=== PATIENT | male | born 1975 | race Caucasian/White ===

== ENCOUNTER 2020-01-15 20:28 | Emergency (ER) | payer OTHER ==
[2020-01-15 20:35] VITALS: TEMP 98.5; BMI 33.0
--- NOTE | 2020-01-15 20:38 | PDOC ---
Rapid Medical Evaluation Time Seen by Provider: 01/15/20 20:31 Medical Evaluation: Allergies Allergy/AdvReac Type Severity Reaction Status Date / Time No Known Allergies Allergy Verified 08/01/15 10:27 01/15/20 20:31 I have performed a brief in-person evaluation of this patient. CC: "I have a pulsating pain in my mouth." PE: tender submandibular swelling left mid mandible. Orders: deferred to ED provider Patient will proceed to ED for further evaluation. 01/15/20 20:39 Discharge Disposition - Diagnosis Toothache - Referrals - Patient Instructions - Post Discharge Activity
--- NOTE | 2020-01-15 21:53 | PDOC ---
History of Present Illness <BrizuelaFransisco - Last Filed: 01/15/20 22:38> - History of Present Illness Initial Comments: Jayant Marshall is a 44 y/o male with PMH significant for HTN, HLD, presenting today with tooth pain. Reports that pain started three days ago and has been worsening. He had a left upper molar tooth extraction done 6 weeks ago. Was told that he had "holes" in the left lower back molars (18 and 19) and that he needed a root canal, but he does not have insurance to cover that. Reports that the pain worsens when he bites down and has pain when he swallows. No bleeding or discharge from the tooth. No fever/chills. No chest pain/shortness of breath. No respiratory distress. No abd pain. No leg swelling. No dysuria/diarrhea. No headache/dizziness. 1 <Lewis Marrufo - Last Filed: 01/16/20 18:49> - General Chief Complaint: Pain Stated Complaint: MANDIBLE INFECTION W/ PAIN Time Seen by Provider: 01/15/20 20:31 Past History <Fransisco Brizuela - Last Filed: 01/15/20 22:38> - Medical History Anemia: No Asthma: Yes Cancer: No Cardiac Disorders: No CVA: No COPD: No CHF: No Dementia: No Diabetes: No GI Disorders: Yes (gastritis) Disorders: No HTN: Yes Hypercholesterolemia: Yes Liver Disease: No Seizures: No Thyroid Disease: No - Surgical History Abdominal Surgery: No Appendectomy: No Cardiac Surgery: No Cholecystectomy: No Lung Surgery: No Neurologic Surgery: No Orthopedic Surgery: No - Psycho-Social/Smoking History Smoking Status: Yes Smoking History: Never smoked Have you smoked in the past 12 months: Yes Number of Cigarettes Smoked Daily: 1 'Breaking Loose' booklet given: 04/21/13 - Substance Abuse Hx (Audit-C & DAST Scrn) How often the patient has a drink containing alcohol: Monthly or less Number of drinks the patient has on a typical day: 5 or 6 How often the patient has six or more drinks on one occasion: Never Score: In Men: 4 or > Positive; In Women: 3 or > Positive: 3 Screen Result (Pos requires Nsg. Audit-10AR): Negative In the last yr the pt used illegal drug/Rx for NonMed reason: No Score: Yes response is considered Positive: 0 Screen Result (Positive result requires Nsg. DAST-10): Negative <Lewis Marrufo - Last Filed: 01/16/20 18:49> - Medical History Allergies/Adverse Reactions: Allergies Allergy/AdvReac Type Severity Reaction Status Date / Time No Known Allergies Allergy Verified 08/01/15 10:27 Home Medications: Ambulatory Orders No Home Medications 0 dose .ROUTE UTDICT 10/16/13 Oseltamivir Phosphate [Tamiflu] 75 mg PO BID #10 capsule 08/01/15 Amoxicillin/Potassium Clav [Augmentin 875-125 Tablet] 1 each PO BID 5 Days #10 tablet 01/16/20 Naproxen 500 mg PO BID PRN 5 Days #10 tablet 01/16/20 Review of Systems - Review of Systems Comments:: GENERAL/CONSTITUTIONAL: No fever or chills. No weakness._ HEAD, EYES, EARS, NOSE AND THROAT: No change in vision. No change in hearing. No sore throat. Reports left lower molar swelling (18 and 19). Reports left cheek and submandibular swelling. Reports odynophagia. CARDIOVASCULAR: No chest pain or shortness of breath_ RESPIRATORY: Denies cough, hemoptysis_ GASTROINTESTINAL: No nausea, vomiting, diarrhea or constipation._ GENITOURINARY: No dysuria, frequency, or change in urination._ MUSCULOSKELETAL: No joint or muscle swelling or pain. No neck or back pain._ SKIN: No rash_ NEUROLOGIC: No headache, vertigo, loss of consciousness, or change in strength/sensation._ ENDOCRINE: No increased thirst. No abnormal weight change_ HEMATOLOGIC/LYMPHATIC: No anemia, easy bleeding, or history of blood clots._ ALLERGIC/IMMUNOLOGIC: No hives or skin allergy._ <Lewis Marrufo - Last Filed: 01/16/20 18:49> *Physical Exam - Vital Signs Last Vital Signs Temp Pulse Resp BP Pulse Ox 98.5 F 72 19 189/102 H 100 01/15/20 20:31 01/15/20 20:31 01/15/20 20:31 01/15/20 20:31 01/15/20 20:31 <Fransisco Brizuela - Last Filed: 01/15/20 22:38> - Vital Signs Last Vital Signs Temp Pulse Resp BP Pulse Ox 98.5 F 72 19 189/102 H 100 01/15/20 20:31 01/15/20 20:31 01/15/20 20:31 01/15/20 20:31 01/15/20 20:31 - Physical Exam GENERAL: Awake, alert, and oriented to person/place/time, in no acute distress_ HEAD: No signs of trauma, normocephalic, atraumatic _ EYES: PERRLA, EOMI, sclera anicteric, conjunctiva clear_ ENT: Hearing grossly normal, nares patent, oropharynx clear without exudates. No uvular deviation. Moist mucosa_ TEETH: TTP left lower molars #18 and 19. No fractured tooth. No bleeding or discharge noted. No abscess palpated over the tooth or gum. Mild swelling over the left cheek and left submandibular area. NECK: Normal ROM, supple, no lymphadenopathy, JVD, or masses_ LUNGS: No distress, speaks in full sentences, clear to auscultation bilaterally _ HEART: Regular rate and rhythm, normal S1 and S2, no murmurs appreciated, peripheral pulses normal and equal bilaterally._ EXTREMITIES: Normal inspection, Normal range of motion, no edema. No clubbing or cyanosis_ NEUROLOGICAL: Cranial nerves II through XII grossly intact. Normal speech, normal gait, no focal sensorimotor deficits _ SKIN: Warm, Dry, normal turgor, no rashes or lesions noted_ <Lewis Marrufo - Last Filed: 01/16/20 18:49> Procedures - Additional Procedures Progress: Infra-alveolar Nerve Block Risks and benefits discussed with patient. Verbal consent obtained. Distribution of left inferior alveolar nerve identified. 27 gauge needle inserted and drawn back with no blood return. 1 cc of bupivicaine injected into that region. Adequate analgesia obtained. No complications. Patient tolerated the procedure well. <Lewis Marrufo - Last Filed: 01/16/20 18:49> Medical Decision Making - Medical Decision Making 01/15/20 21:54 44M hx of HTN HLD s/p left upper molar extraction presenting today with pain over left lower molars (#18 and 19) for the past two days. No -systemic infectious symptoms. No fever/chills/shortness of breath. Tolerating secretions. DDx includes infected tooth vs dental abscess. Low suspicion for yury's angina vs other etiology compromising the airway given that the pt does not have a fever, has no change in voice per his report, able to swallow (though painful), is tolerating his secretions. Will provide infra alveolar block for pain control and f/u with dental clinic. 01/15/20 23:13 Infra-alveolar block performed with Dr. Lee. See procedure note. 01/16/20 00:12 XR left mandible and XR neck soft tissues shows no obvious mass or airway obstruction. Plan to d/c home with naproxen 500 mg BID and augmentin 875 mg BID for 5 days and [facility] dental clinic f/u tomorrow morning. All questions answered. Return precautions given. Pt verbalized understanding and agreement with plan. <Lewis Marrufo - Last Filed: 01/16/20 18:49> Discharge <Fransisco Brizuela - Last Filed: 01/15/20 22:38> - Discharge Information Problems reviewed: Yes - Admission No <Lewis Marrufo - Last Filed: 01/16/20 18:49> - Discharge Information Clinical Impression/Diagnosis: Toothache Condition: Stable Disposition: HOME - Additional Discharge Information Prescriptions: Amoxicillin/Potassium Clav [Augmentin 875-125 Tablet] 1 each PO BID 5 Days #10 tablet Naproxen 500 mg PO BID PRN 5 Days #10 tablet PRN Reason: Pain - Follow up/Referral Referrals: Yoni Loera MD [Primary Care Provider] - - Patient Discharge Instructions Patient Printed Discharge Instructions: DI for Dental Pain Additional Instructions: You should go to one of the following dental clinics tomorrow mornin) [facility] [address] [place] [address] Building [address], 3rd Floor 2) [facility] [address] [place] [address] Main Building, 2nd Floor Both clinics only take the first 15 people per day. Plan to arrive around 8am. Please take augmentin 875mg BID for 5 days until you see a dentist. I have sent a prescription for a pain medication called Naproxen to your pharmacy. Take as directed on the package insert. Do not exceed the recommended dosage. Do not take with other NSAID medications such as Ibuprofen, Advil, or Motrin. Start with taking the Naproxen 500mg every 12 hours. If the pain becomes worse then add Tylenol (Acetaminophen) between doses of Naproxen. An example schedule is as follows: 9:00 am 500mg Naproxen 12:00 pm 1000mg Tylenol 6:00 pm 1000mg Tylenol 9:00 pm 500 mg Naproxen 12:00 am 1000mg Tylenol Your blood pressure was elevated today in the emergency department. This is not likely to be the cause of your symptoms. However, you should discuss your blood pressure with your primary care doctor. It may be time to change or restart your medication. If you experience any new, worsening, or concerning symptoms, including worsening pain, discharge or bleeding from the tooth, difficulty breathing, inability to swallow, fever, chills, or any other concerns, please return to the emergency department. - Post Discharge Activity
[2020-01-15] MEDS ORDERED: BUPIVACAINE HCL/PF 0.5% (5 MG/ML) 30 ML VIAL IJ ONE (22:17)
--- NOTE | 2020-01-15 22:18 | PDOC ---
Attending Attestation - Resident Resident Name: Lewis Reyes - ED Attending Attestation I have performed the following: I have examined & evaluated the patient, The case was reviewed & discussed with the resident, I agree w/resident's findings & plan - HPI HPI: 01/15/20 23:20 Pt has pain at the 18th tooth; last tooth at the left mandible. Pt states that he has known cavities and that he needs a root canal. Pt smokes weed; not tobacco. Pt has no DM, only HTN and maybe high cholesterol - Physicial Exam PE: 01/15/20 23:21 Normal exam HEENT normal. Pt has pain at the left neck area/tender lymph nodes Pt has no voice change; no difficulty swallowing and no difficulty managing secretions. Pt has no fever and no chills. Pt has normal neuro exam - Medical Decision Making 01/15/20 23:30 1.5ml upivicaine infiltrated into the buccal mucosa, as well as around the inferior alveolar nerve. 01/15/20 23:31 Pt will have soft tissue xr of his neck; XR of left mandible. Discharge - Discharge Information Problems reviewed: Yes Clinical Impression/Diagnosis: Toothache Condition: Stable Disposition: HOME - Additional Discharge Information Prescriptions: Amoxicillin/Potassium Clav [Augmentin 875-125 Tablet] 1 each PO BID 5 Days #10 tablet Naproxen 500 mg PO BID PRN 5 Days #10 tablet PRN Reason: Pain - Follow up/Referral Referrals: Yoni Loera MD [Primary Care Provider] - - Patient Discharge Instructions Patient Printed Discharge Instructions: DI for Dental Pain Additional Instructions: You should go to one of the following dental clinics tomorrow mornin) [facility] [address] [place] [address] [address], 3rd Floor 2) [facility] [address] [place] [address] Main Building, 2nd Floor Both clinics only take the first 15 people per day. Plan to arrive around 8am. Please take augmentin 875mg BID for 5 days until you see a dentist. I have sent a prescription for a pain medication called Naproxen to your pharmacy. Take as directed on the package insert. Do not exceed the recommended dosage. Do not take with other NSAID medications such as Ibuprofen, Advil, or Motrin. Start with taking the Naproxen 500mg every 12 hours. If the pain becomes worse then add Tylenol (Acetaminophen) between doses of Naproxen. An example schedule is as follows: 9:00 am 500mg Naproxen 12:00 pm 1000mg Tylenol 6:00 pm 1000mg Tylenol 9:00 pm 500 mg Naproxen 12:00 am 1000mg Tylenol Your blood pressure was elevated today in the emergency department. This is not likely to be the cause of your symptoms. However, you should discuss your blood pressure with your primary care doctor. It may be time to change or restart your medication. If you experience any new, worsening, or concerning symptoms, including worsening pain, discharge or bleeding from the tooth, difficulty breathing, i nability to swallow, fever, chills, or any other concerns, please return to the emergency department. - Post Discharge Activity
[2020-01-15] MEDS ORDERED: BUPIVACAINE HCL 50 ML ONE (22:29)
[2020-01-15] MEDS ORDERED: AMOX TR/POT CLAV 875MG/125MG TABLETS (FP) PO ONE (23:18)
[2020-01-15] MEDS ORDERED: AMOX TR/POT CLAV 875MG/125MG TABLETS (FP) ONE (23:28)
[2020-01-15 23:56] VITALS: BP 190/96; PULSE 71
== END 2020-01-16 00:18 | disposition home or self-care (01) ==
LOC: JER 20:28
DX: K08.89 Other specified disorders of teeth and supporting structures (principal)
CPT/HCPCS: 70100-TC-FY; 70360-TC-FY; 99283-25

== ENCOUNTER 2020-03-20 15:55 | Emergency (ER) | payer OTHER ==
--- OUTSIDE RECORDS SUMMARY | 2020-03-20 16:08 | XMS ---
:1975 Author Organization [facility] Care Team Providers Name Role Phone Chumaceiro, Yoni Unavailable Unavailable Chumaceiro, Yoni Unavailable Unavailable Chumaceiro, Yoni Unavailable Unavailable Chumaceiro, Yoni Unavailable Unavailable Chumaceiro, Yoni Unavailable Unavailable Chumaceiro, Yoni Unavailable Unavailable Chumaceiro, Yoni Unavailable Unavailable Elmaclashonro, Yoni Unavailable Unavailable Riki Mosher MD Unavailable Unavailable Riki Mosher MD Unavailable Unavailable Riki Mosher MD Unavailable Unavailable Riki Mosher MD Unavailable Unavailable Riki Mosher MD Unavailable Unavailable EMERGENCY SERVICE, X Unavailable Unavailable HAYLEY MENDOZA Unavailable HAYLEY MENDOZA Unavailable ANNETTE MARMOLEJO Unavailable Unavailable HAYLEE VELASQUEZ Unavailable Unavailable Re-disclosure Warning The records that you are about to access may contain information from federally- assisted alcohol or drug abuse programs. If such information is present, then the following federally mandated warning applies: This information has been disclosed to you from records protected by federal confidentiality rules (42 CFR part 2). The federal rules prohibit you from making any further disclosure of this information unless further disclosure is expressly permitted by the written consent of the person to whom it pertains or as otherwise permitted by 42 CFR part 2. A general authorization for the release of medical or other information is NOT sufficient for this purpose. The Federal rules restrict any use of the information to criminally investigate or prosecute any alcohol or drug abuse patient.The records that you are about to access may contain highly sensitive health information, the redisclosure of which is protected by Article 27-F of the [facility] Public Health law. If you continue you may haveaccess to information: Regarding HIV / AIDS; Provided by facilities licensed or operated by the [facility] Office of Mental Health; or Provided by the [facility] Office for People With Developmental Disabilities. If such information is present, then the following [facility] mandated warning applies: This information has been disclosed to you from confidential records which are protected by state law. State law prohibits you from making any further disclosure of this information without the specific written consent of the person to whom it pertains, or as otherwise permitted by law. Any unauthorized further disclosure in violation of state law may result in a fine or penitentiary sentence or both. A general authorization for the release of medical or other information is NOT sufficient authorization for further disclosure. Encounters Encounter Providers Location Date Indications Data Source(s ) Attender: HAYLEY 03/12/2020 [facility] 12:00:00 AM EDT [facility], PC) Office Attender: HAYLEY MENDOZA 03/05/2020 12:00:00 AM EDT [facility] ([facility] Office Attender: HAYLEY MENDOZA 03/05/2020 12:00:00 AM EDT [facility] ([facility] Office Attender: HAYLEY MENDOZA 03/05/2020 12:00:00 AM EDT [facility] Office Attender: HAYLEY MENDOZA 02/29/2020 12:00:00 AM EDT [facility] ([facility] Office Attender: HAYLEY MENDOZA 02/29/2020 12:00:00 AM EDT [facility] ([facility] Office Attender: HAYLEY MENDOZA 02/29/2020 12:00:00 AM EDT [facility] ([facility] Office Attender: HAYLEY MENDOZA 02/29/2020 12:00:00 AM EDT [facility] ([facility] Office Attender: HAYLEY MENDOZA 02/29/2020 12:00:00 AM EDT [facility] ([facility]) Office Attender: HAYLEY MENDOZA 02/29/2020 12:00:00 AM EDT [facility] ([facility], ) Office Attender: HAYLEY MENDOZA 02/29/2020 12:00:00 AM EDT [facility] ([facility], ) Office Attender: HAYLEY MENDOZA 02/29/2020 12:00:00 AM EDT [facility] ([facility], ) Office Attender: Yoni 01/24/2020 12:00:00 AM EDT [facility] ([facility], ) Office Attender: Yoni 01/24/2020 12:00:00 AM EDT [facility] ([facility], ) Office Attender: Yoni 01/24/2020 12:00:00 AM EDT [facility] ([facility], ) Office Emergency Attender: RON 01/17/2020 NECK SWELLING [facility] AGNIESZKAAttender: 11:06:00 AM EDT [facility] EMERGENCY SERVICE, Corpor ation XAdmitter: HAYLEE VELASQUEZ NECK SWELLING Emergency Attender: FRANCIE 01/16/2020 06:28:00 TOOTH SATURNINO N [facility] CECILEARAttender: AM EDT [facility] Car [facility] EMERGENCY SERVICE, Corpor ation XAdmitter: ANNETTE MARMOLEJO TOOTH PAIN Emergency Attender: Riki 10/17/2019 04:43:00 DIFF BREAT JOHN [facility] Nomi MDAttender: AM EDT [facility] EMERGENCY SERVICE, Corpor ation XAdmitter: Riki Mosher MD DIFF BREATHING Medications Medication Brand Start Product Dose Route Administrative Pharmacy [facility] Indications Reaction Description Data Name Date Form Instructions Instructions Source(s) complet No Known [facility] ([place] [address] ed Medications [facility] 12:00: Medical, 00 AM PC) EDT complet No Known [facility] ([place] [address] ed Medications [facility] 12:[facility]: Medical, 00 AM PC) EDT complet No Known [facility] ([place] [address] ed Medications [facility] 12:00: Medical, 00 AM PC) EDT complet No Known [facility] ([place] [address] ed Medications [facility] 12:00: Medical, 00 AM PC) EDT complet No Known [facility] (St 2020 ed Medications [facility] 12:00: Medical, 00 AM PC) EDT Amoxicillin UNK complet Amoxicil paul [place] 500 MG Oral 2020 MG ed 500 MG Oral r [facility] Capsul 01:19: Capsule TAKE Hea lt 45 PM 1 CAPSULE Care EDT EVERY 8 Corporatio HOURS DAILY. n Dispense: 21 Supervising physician: Halyee Velasquez, DO 0.9% NaCl 0.9% 999 UNK active 0.9% NaCl [facility] IV NaCl 2020 mL IV 1000 mL [facility] IV 11:25: Health 51 AM Care EDT Corporatio n Medication administered onsite Tylenol Tylenol 01/17/2020 1000 UNK active Tylen ol [facility] Infusion 11:25:47 AM mg Infus ion [facility] (AD (AD EDT (ADULT) or Care GT 50 kg Corporation 1000 mg IVPB Medication administered onsite Unasyn Unasyn 01/17/2020 3 UNK active Unasyn [place] (Ampicillin/S (Ampicillin/S 11:16:11 AM gm (Ampicillin/Sulbacatam) [facility] EDT PREMIX Injection 3 g m IV Health Care [facility] Medication administered onsite Toradol 30 Toradol 30 01/16/2020 30 mg UNK active Toradol 30 [place] mg/mL (Ke mg/mL (Ke 07:33:51 AM mg/ mL [facility] EDT (Ketorolac) Care Injection 30 Corpora tion mg IM Medication administered onsite Amoxicillin-Pot 10/19/2019 999 UNK completed Amoxicillin-Pot [place] Clavulanate 87 10:39:39 AM MG [facility] 875-125 MG Oral [facility] Tablet TAKE 1 Corpor ation TABLET TWICE DAILY UNTIL FINISHED. Dispense: 20 Amoxicillin-Pot 10/19/2019 999 UNK completed Amoxicillin-Pot [place] Clavulanate 87 10:39:39 AM MG [facility] 875-125 MG Oral [facility] Tablet TAKE 1 Corpor ation TABLET TWICE DAILY UNTIL FINISHED. Dispense: 20 Amoxicillin-Pot 10/19/2019 999 UNK completed Amoxicillin-Pot [place] Clavulanate 87 10:39:39 AM MG [facility] 875-125 MG Oral [facility] Tablet TAKE 1 Corpor ation TABLET TWICE DAILY UNTIL FINISHED. Dispense: 20 Lidocaine 10/17/2019 999 UNK completed Lido melony [place] Viscous HCl 2 % 06:22:12 AM MG Vi scous HCl 2 % [facility] Mouth/Throat Health Care Solution USE Corpora tion EVERY 4 TO 6 HRS, GARGLE AND SWALLOW 5-10ML Dispense: 100 Lidocaine 10/17/2019 999 UNK completed Lido melony [place] Viscous HCl 2 % 06:22:12 AM MG Vi scous HCl 2 % [facility] ED Mouth/Throat Health Care Solution USE Corpora tion EVERY 4 TO 6 HRS, GARGLE AND SWALLOW 5-10ML Dispense: 100 Acetaminophen 10/17/2019 999 UNK completed Acetaminophen [place] 500 MG Oral Tabl 06:22:12 AM MG 5 00 MG Oral [facility] EDT Tablet TAKE 1 Health Care TABLET EVERY 4 Corpo ration TO 6 HOURS NEEDED. Dispense: 20 Acetaminophen 10/17/2019 999 UNK completed Acetaminophen [place] 500 MG Oral Tabl 06:22:12 AM MG 5 00 MG Oral [facility] EDT Tablet TAKE 1 Health Care TABLET EVERY 4 Corpo ration TO 6 HOURS NEEDED. Dispense: 20 Lidocaine 10/17/2019 999 UNK completed Lido melony [place] Viscous HCl 2 % 06:22:12 AM MG Vi scous HCl 2 % [facility] Mouth/Throat Health Care Solution USE Corpora tion EVERY 4 TO 6 HRS, GARGLE AND SWALLOW 5-10ML Dispense: 100 Acetaminophen 10/17/2019 999 UNK completed Acetaminophen [place] 500 MG Oral Tabl 06:22:12 AM MG 5 00 MG Oral [facility] EDT Tablet TAKE 1 Health Care TABLET EVERY 4 Corpo ration TO 6 HOURS NEEDED. Dispense: 20 Acetaminophen Acetami 10/17/2019 975 UNK active Acetaminophen [place] (Tylen nophen 05:24:22 AM mg (Tylenol) [facility] (Tylen EDT 975 mg PO Health C are Corporation Medication administered onsite Lidocaine Lidocaine 10/17/2019 10 UNK active L idocaine [place] Viscous So Viscous So 05:20:32 AM mL V iscous [facility] EDT Solution Care Oral 10 mL Corporati on PO Medication administered onsite Not Taking Not Taking 999 MG UNK completed N ot Taking [place] Home Meds Home Meds Home [facility] n Not Taking Not Taking 999 MG UNK completed N ot Taking [facility] Meds Home Meds Home [facility] n Not Taking Not Taking 999 MG UNK completed N ot Taking [facility] Meds Home Meds [facility] n Insurance Providers Payer name Policy type Policy ID Covered Covered republican's Policy P monica / Coverage republican ID relationship to Paredes Inf ormation type paredes MEDICAID OF [id number] 1 [id number] [facility] [id number] 1 [id number] [place] UNK UNK UNK HEALTH FIRST [id number] CLAIMS HEALTH FIRST [id number] B HEALTH PLANS HEALTH FIRST [id number] SP [id number] B UNK UNK UNK MEDICAID [id number] SP [id number] UNK UNK UNK Problems, Conditions, and Diagnoses Code Display Name Description Problem Type Effective Data Sour ce(s) Dates R94.5 Abnormal results ABNORMAL RESULTS Problem 02/29/2020 [facility] ([facility] of liver function OF LIVER FUNCTION 12:00:00 AM [facility], studies STUDIES EDT PC) M79.675 Pain in left PAIN IN LEFT Problem 02/29/2020 [facility] ([address] toe(s) TOE(S) 12:00:00 AM [facility], EDT PC) M79.674 Pain in right PAIN IN RIGHT Problem 02/29/2020 [facility] ( St toe(s) TOE(S) 12:00:00 AM [facility], EDT PC) E78.5 Hyperlipidemia, HYPERLIPIDEMIA, Problem 02/29/2020 MED[facility] EN (St unspecified UNSPECIFIED 12:00:00 AM [facility], EDT PC) L60.0 Ingrowing nail INGROWIN NAIL Problem 02/29/2020 [facility] (St 12:00:00 AM [facility], EDT PC) B35.1 Tinea unguium TINEA UNGUIUM Problem 02/29/2020 [facility] ( St 12:00:00 AM [facility], EDT PC) R94.5 Abnormal results ABNORMAL RESULTS Problem 02/29/2020 ME [facility] (St of liver function OF LIVER FUNCTION 12:00:00 AM [facility], studies STUDIES EDT PC) M79.675 Pain in left PAIN IN LEFT Problem 02/29/2020 [facility] ([address] toe(s) TOE(S) 12:00:00 AM [facility], EDT PC) M79.674 Pain in right PAIN IN RIGHT Problem 02/29/2020 [facility] ( St toe(s) TOE(S) 12:00:00 AM [facility] EDT PC) E78.5 Hyperlipidemia, HYPERLIPIDEMIA, Problem 02/29/2020 MED[facility] EN (St unspecified UNSPECIFIED 12:00:00 AM [facility], EDT PC) L60.0 Ingrowing nail INGROWIN NAIL Problem 02/29/2020 [facility] (St 12:00:00 AM [facility], EDT PC) B35.1 Tinea unguium TINEA UNGUIUM Problem 02/29/2020 [facility] ( St 12:00:00 AM [facility] EDT PC) M79.675 Pain in left PAIN IN LEFT Problem 02/29/2020 [facility] (St toe(s) TOE(S) 12:00:00 AM [facility] EDT PC) M79.674 Pain in right PAIN IN RIGHT Problem 02/29/2020 [facility] ( St toe(s) TOE(S) 12:00:00 AM [facility] EDT PC) L60.0 Ingrowing nail INGROWIN NAIL Problem 02/29/2020 [facility] (St 12:00:00 AM [facility] EDT PC) B35.1 Tinea unguium TINEA UNGUIUM Problem 02/29/2020 [facility] ( St 12:00:00 AM [facility]T PC) R94.5 Abnormal results ABNORMAL RESULTS Problem 02/29/2020 ME [facility] (St of liver function OF LIVER FUNCTION 12:00:00 [facility] M79.675 Pain in left PAIN IN LEFT Problem 02/29/2020 [facility] ([address] toe(s) TOE(S) 12:00:00 AM [facility] EDT PC) M79.674 Pain in right PAIN IN RIGHT Problem 02/29/2020 [facility] ( St toe(s) TOE(S) 12:00:00 AM [facility], EDT PC) E78.5 Hyperlipidemia, HYPERLIPIDEMIA, Problem 02/29/2020 MED[facility] EN (St unspecified UNSPECIFIED 12:00:00 AM [facility], EDT PC) L60.0 Ingrowing nail INGROWIN NAIL Problem 02/29/2020 [facility] (St 12:00:00 AM [facility], EDT PC) B35.1 Tinea unguium TINEA UNGUIUM Problem 02/29/2020 [facility] ( St 12:00:00 AM [facility], EDT PC) B97.21 SARS-associated SARS-ASSOCIATED Problem 01/24/2020 MED[facility] EN (St coronavirus as the CORONAVIRUS THE 12:00:00 AM [facility], cause of diseases CAUSE OF DISEASES EDT PC) classified CLASSIFIED elsewhere ELSEWHERE E66.8 Other obesity OTHER OBESITY Problem 01/24/2020 [facility] ( St 12:00:00 AM [facility], EDT PC) I10 Essential ESSENTIAL Problem 01/24/2020 [facility] (St (primary) (PRIMARY) 12:00:00 AM [facility], hypertension HYPERTENSION EDT PC) B97.21 SARS-associated SARS-ASSOCIATED Problem 01/24/2020 MED[facility] EN (St coronavirus as the CORONAVIRUS THE 12:00:00 AM [facility], cause of diseases CAUSE OF DISEASES EDT PC) classified CLASSIFIED elsewhere ELSEWHERE E66.8 Other obesity OTHER OBESITY Problem 01/24/2020 [facility] ( St 12:00:00 AM [facility], EDT PC) I10 Essential ESSENTIAL Problem 01/24/2020 [facility] (St (primary) (PRIMARY) 12:00:00 AM [facility], hypertension HYPERTENSION EDT PC) B97.21 SARS-associated SARS-ASSOCIATED Problem 01/24/2020 [facility] EN (St coronavirus as the CORONAVIRUS THE 12:00:00 AM [facility], cause of diseases CAUSE OF DISEASES EDT PC) classified CLASSIFIED elsewhere ELSEWHERE E66.8 Other obesity OTHER OBESITY Problem 01/24/2020 [facility] ( St 12:00:00 AM [facility], EDT PC) I10 Essential ESSENTIAL Problem 01/24/2020 [facility] (St (primary) (PRIMARY) 12:00:00 AM [facility], hypertension HYPERTENSION EDT PC) B97.21 SARS-associated SARS-ASSOCIATED Problem 01/24/2020 MED[facility] EN (St coronavirus as the CORONAVIRUS THE 12:00:00 AM [facility], cause of diseases CAUSE OF DISEASES EDT PC) classified CLASSIFIED elsewhere ELSEWHERE E66.8 Other obesity OTHER OBESITY Problem 01/24/2020 [facility] ( St 12:00:00 AM [facility], EDT PC) I10 Essential ESSENTIAL Problem 01/24/2020 [facility] (St (primary) (PRIMARY) 12:00:00 AM [facility], hypertension HYPERTENSION EDT PC) B97.21 SARS-associated SARS-ASSOCIATED Problem 01/24/2020 MED[facility] EN (St coronavirus as the CORONAVIRUS THE 12:00:00 AM [facility], cause of diseases CAUSE OF DISEASES EDT PC) classified CLASSIFIED elsewhere ELSEWHERE E66.8 Other obesity OTHER OBESITY Problem 01/24/2020 [facility] ( St 12:00:00 AM [facility], EDT PC) I10 Essential ESSENTIAL Problem 01/24/2020 [facility] (St (primary) (PRIMARY) 12:00:00 AM [facility], hypertension HYPERTENSION EDT PC) Z98.818 Other dental OTHER DENTAL Diagnosis 01/17/2020 [facility] r procedure status PROCEDURE STATUS 11:06:00 AM [facility] EDT Care OOYYO R60.0 Localized edema LOCALIZED EDEMA Diagnosis 01/17/2020 [place] 11:06:00 AM [facility] EDT Care OOYYO G89.18 Other acute OTHER ACUTE Diagnosis 01/17/2020 [place] postprocedural POSTPROCEDURAL 11:06:00 AM [facility] pain PAIN EDT Care OOYYO R60.9 Edema, unspecified EDEMA, UNSPECIFIED Diagnosis 0 [place] 11:06:00 AM [facility] EDT Care OOYYO I10 Essential ESSENTIAL Diagnosis 01/16/2020 [place] (primary) (PRIMARY) 06:28:00 AM [facility] hypertension HYPERTENSION EDT Care Corporation K02.9 Dental caries, DENTAL CARIES, Diagnosis 01/16/2020 [facility] unspecified UNSPECIFIED 06:28:00 AM [facility] EDT Care OOYYO K08.89 Other specified OTHER SPECIFIED Diagnosis 01/16/2020 [place] disorders of teeth DISORDERS OF TEETH 06:28:00 AM [facility] and supporting AND SUPPORTING EDT Care structures STRUCTURES Corporation U07.1 COVID-19 ACUTE COVID-19 ACUTE Diagnosis 10/17/2019 [facility] RESPIRATORY RESPIRATORY 04:43:00 AM [facility] DISEASE DISEASE EDT Care [facility] J02.0 Streptococcal STREPTOCOCCAL Diagnosis 10/17/2019 [facility] pharyngitis PHARYNGITIS 04:43:00 AM [facility] EDT Care Corporation J02.9 Acute pharyngitis, ACUTE PHARYNGITIS, Diagnosis 0 [place] unspecified UNSPECIFIED [facility]:43:[facility] Surgeries/Procedures Procedure Description Date Indications Data Source(s) OFFICE OUTPATIENT VISIT 03/12/2020 [facility] ([facility] 10 MINUTES 12:00:00 AM EDT Medical, ) OFFICE OUTPATIENT VISIT 03/05/2020 [facility] ([facility] 10 MINUTES 12:00:00 AM EDT Medical, ) AVULSION NAIL PLATE 03/05/2020 [facility] ( [facility] PARTIAL/COMPLETE SIMPLE 1 12:00:00 AM EDT Medical, ) OFFICE OUTPATIENT VISIT 03/05/2020 [facility] ([facility] 10 MINUTES 12:00:00 AM EDT Medical, ) AVULSION NAIL PLATE 03/05/2020 [facility] ( [facility] PARTIAL/COMPLETE SIMPLE 1 12:00:00 AM EDT Medical, ) Documentation of current 02/29/2020 [facility] ([facility] medications (procedure) 12:00:00 AM EDT edical, ) OFFICE OUTPATIENT VISIT 02/29/2020 [facility] ([facility] 15 MINUTES 12:00:00 AM EDT Medical, ) OFFICE OUTPATIENT NEW 20 02/29/2020 [facility] ([facility] MINUTES 12:00:00 AM EDT Medical, ) Documentation of current 02/29/2020 [facility] ([facility] medications (procedure) 12:00:00 AM EDT edical, ) OFFICE OUTPATIENT VISIT 02/29/2020 [facility] ([facility] 15 MINUTES 12:00:00 AM EDT Medical, ) OFFICE OUTPATIENT NEW 20 02/29/2020 [facility] ([facility] MINUTES 12:00:00 AM EDT [facility], ) OFFICE OUTPATIENT NEW 20 02/29/2020 [facility] ([facility] MINUTES 12:00:00 AM [facility], ) Documentation of current 02/29/2020 [facility] ([facility] medications (procedure) 12:00:00 AM EDT [facility], ) OFFICE OUTPATIENT VISIT 02/29/2020 [facility] ([facility] 15 MINUTES 12:00:00 AM [facility], ) OFFICE OUTPATIENT NEW 20 02/29/2020 [facility] ([facility] MINUTES 12:00:00 AM [facility], ) Documentation of current 01/24/2020 [facility] ([facility] medications (procedure) 12:00:00 AM EDT [facility], ) Documentation of current 01/24/2020 [facility] ([facility] medications (procedure) 12:00:00 AM EDT [facility], ) Documentation of current 01/24/2020 [facility] ([facility] medications (procedure) 12:00:00 AM EDT [facility], ) Documentation of current 01/24/2020 [facility] ([facility] medications (procedure) 12:00:00 AM EDT [facility], ) Documentation of current 01/24/2020 [facility] ([facility] medications (procedure) 12:00:00 AM EDT [facility], ) ECG ROUTINE ECG W/LEAST 01/24/2020 [facility] ([facility] 12 LDS W/I&R 12:00:00 AM [facility], ) COLLECTION VENOUS BLOOD 01/24/2020 [facility] ([facility] VENIPUNCTURE 12:00:00 AM [facility], ) Documentation of current 01/24/2020 [facility] ([facility] medications (procedure) 12:00:00 AM EDT [facility], ) Documentation of current 01/24/2020 [facility] ([facility] medications (procedure) 12:00:00 AM EDT [facility], ) Documentation of current 01/24/2020 [facility] ([facility] medications (procedure) 12:00:00 AM EDT [facility], ) Documentation of current 01/24/2020 [facility] ([facility] medications (procedure) 12:00:00 AM EDT [facility], ) Documentation of current 01/24/2020 [facility] ([facility] medications (procedure) 12:00:00 AM EDT [facility], ) ECG ROUTINE ECG W/LEAST 01/24/2020 [facility] ([facility] 12 LDS W/I&R 12:00:00 AM [facility], ) COLLECTION VENOUS BLOOD 01/24/2020 [facility] ([facility] VENIPUNCTURE 12:00:00 AM [facility], ) Documentation of current 01/24/2020 [facility] ([facility] medications (procedure) 12:00:00 AM T [facility], ) Documentation of current 01/24/2020 [facility] ([facility] medications (procedure) 12:00:00 AM T [facility], ) Documentation of current 01/24/2020 [facility] ([facility] medications (procedure) 12:00:00 AM T [facility], ) Documentation of current 01/24/2020 [facility] ([facility] medications (procedure) 12:00:00 AM T [facility], ) Documentation of current 01/24/2020 [facility] ([facility] medications (procedure) 12:00:00 AM T [facility], ) ECG ROUTINE ECG W/LEAST 01/24/2020 [facility] ([facility] 12 LDS W/I&R 12:00:00 AM [facility], ) COLLECTION VENOUS BLOOD 01/24/2020 [facility] ([facility] VENIPUNCTURE 12:00:00 AM [facility], ) Documentation of current 01/24/2020 [facility] ([facility] medications (procedure) 12:00:00 AM EDT [facility], ) Documentation of current 01/24/2020 [facility] ([facility] medications (procedure) 12:00:00 AM T [facility], ) Documentation of current 01/24/2020 [facility] ([facility] medications (procedure) 12:00:00 AM EDT [facility], ) Documentation of current 01/24/2020 [facility] ([facility] medications (procedure) 12:00:00 AM T [facility], ) Documentation of current 01/24/2020 [facility] ([facility] medications (procedure) 12:00:00 AM EDT [facility], ) ECG ROUTINE ECG W/LEAST 01/24/2020 [facility] ([facility] 12 LDS W/I&R 12:00:00 AM [facility]) COLLECTION VENOUS BLOOD 01/24/2020 [facility] ([facility] VENIPUNCTURE 12:00:00 AM [facility]) Documentation of current 01/24/2020 MED [facility] ([facility] medications (procedure) 12:00:00 AM [facility]) ECG ROUTINE ECG W/LEAST 01/24/2020 [facility] ([facility] 12 LDS W/I&R 12:00:00 AM [facility]) COLLECTION VENOUS BLOOD 01/24/2020 [facility] ([facility] VENIPUNCTURE 12:00:00 AM [facility]) Results ID Date Data Source [id number] 01/24/2020 12:00:00 [facility] Name Value Range Interpretation Code Description Data Clau rce(s) Supporting Document(s ) SARS-CoV- Positive Abnormal (applies [facility] (St 2 to non-numeric [facility] Antibody, results) [facility]) IgG ID Date Data Source [id number] 01/24/2020 12:00:00 AM EDT [facility] ([facility]) Name Value Range Interpretation Code Description Data Clau rce(s) Supporting Document(s ) SARS-CoV- Negative Normal (applies to [facility] (St 2 non-numeric [facility] Antibody, results) [facility]) IgM ID Date Data Source [id number] 01/24/2020 12:00:00 AM [facility] Name Value Range Interpretation Description Data Sup porting Code Source(s) Document(s ) Bilirubin.c 0.08 mg/dL Normal (applies to [facility] ( St onjugated non-numeric [facility] [Mass/volum results) [facility]) e] in Serum or Plasma ID Date Data Source [id number] 01/24/2020 12:00:00 AM EDT [facility] ([facility]) Name Value Range Interpretation Description Data Sup porting Code Source(s) Document(s ) Triglyceride 283 Above high normal [facility] (S t [Mass/volume] in mg/dL [facility] Serum or Plasma [facility]) Cholesterol 218 Above high normal [facility] (St [Mass/volume] in mg/dL [facility] Serum or Plasma Medical, ) HDL Cholesterol 29 mg/dL Below low normal [facility] ([facility], ) VLDL Cholesterol 57 mg/dL Above high normal MEDGE N ([place] [facility] [place] LDL Cholesterol 132 Above high normal MEDGEN (St Calc mg/dL [facility], ) ID Date Data Source [id number] 01/24/2020 12:00:00 AM EDT MEDGEN ([facility], ) Name Value Range Interpretation Description Data Sup porting Code Source(s) Document(s ) pH of Lower 6.5 Normal (applies MEDGEN (St respiratory to non-numeric [place] specimen results) Medical, PC) Specific gravity 1.018 Normal (applies MEDGEN (St of Pericardial to non-numeric [place] fluid by results) Medical, Refractometry PC) Urine-Color Yellow Normal (applies MEDGEN (St to non-numeric [place] results) Medical, PC) Appearance of Clear Normal (applies MEDGEN (St Abdomen to non-numeric [place] results) Medical, PC) Glucose Negative Normal (applies MEDGEN (St [Mass/volume] in to non-numeric [place] Urine collected results) Medical, for unspecified PC) duration WBC Esterase Negative Normal (applies MEDGEN (St to non-numeric [place] results) Medical, PC) Protein Negative Normal (applies MEDGEN (St [Mass/volume] in to non-numeric [place] Lower results) Medical, respiratory PC) specimen Ketones Negative Normal (applies MEDGEN (St [Presence] in to non-numeric [place] Blood by Tablet results) Medical, PC) Occult Blood Negative Normal (applies MEDGEN (St to non-numeric [place] results) Medical, PC) Nitrite, Urine Negative Normal (applies MEDGEN (S t to non-numeric [place] results) Medical, PC) Urobilinogen,Stephanie 1.0 mg/dL Normal (applies MEDGEN (St i-Qn to non-numeric [place] results) Medical, PC) Bilirubin Negative Normal (applies MEDGEN (St [Presence] in to non-numeric [place] Peritoneal fluid results) Medical, PC) Microscopic Normal (applies MEDGEN (St Examination to non-numeric [place] results) Medical, PC) ID Date Data Source [id number] 01/24/2020 12:00:00 AM EDT [facility] ([facility] Name Value Range Interpretation Description Data Sup porting Code Source(s) Document(s ) Glucose 108 Above high MEDGEN (St [Mass/volume] in mg/dL normal [place] Urine collected for Medical, unspecified PC) duration Urea nitrogen 16 mg/dL Normal (applies MEDGEN (St [Mass/volume] in to non-numeric [place] Serum or Plasma results) Medical, PC) Creatinine 1.03 Normal (applies MEDGEN (St [Interpretation] in mg/dL to non-numeric [place] [facility] Urine results) Medical, PC) eGFR If Africn Am 102 Normal (applies MEDGEN (St mL/min/1 to non-numeric [place] .73 results) Medical, PC) eGFR If NonAfricn 88 Normal (applies MEDGEN (St Am mL/min/1 to non-numeric [place] .73 results) Medical, PC) Sodium 142 Normal (applies [facility]GEN (St [Moles/volume] in mmol/L to non-numeric [place] Serum or Plasma results) Medical, PC) Potassium 4.2 Normal (applies MEDGEN (St [Mass/volume] in mmol/L to non-numeric [place] Blood results) Medical, PC) BUN/Creatinine 16 Normal (applies MEDGEN (S t Ratio to non-numeric [place] results) Medical, PC) Carbon dioxide, 21 Normal (applies MEDGEN ( St total mmol/L to non-numeric [place] [Moles/volume] in results) Medical, Serum or Plasma PC) Chloride 107 Above high MEDGEN (St [Moles/volume] in mmol/L normal [place] Serum or Plasma Medical, PC) Protein 6.9 g/dL Normal (applies [facility]GEN (St [Mass/volume] in to non-numeric [place] Serum or Plasma results) Medical, PC) Calcium 9.0 Normal (applies MEDGEN (St [Moles/volume] in mg/dL to non-numeric [place] Urine collected for results) Medical, unspecified PC) duration Globulin, Total 2.4 g/dL Normal (applies MEDGEN ( St to non-numeric [place] results) Medical, PC) A/G Ratio 1.9 Normal (applies [facility] (St to non-numeric [place] results) Medical, ) Microalbumin 4.5 g/dL Normal (applies MEDGEN (St [Mass/time] in to non-numeric [place] Urine collected for results) Medical, unspecified PC) duration Bilirubin.total <0.2 Normal (applies MEDGEN ( St [Mass/volume] in to non-numeric [place] Serum or Plasma results) Medical, ) Alkaline 127 IU/L Above high MEDGEN (St phosphatase normal [place] [Enzymatic Medical, activity/volume] in PC) Serum, Plasma or Blood Aspartate 28 IU/L Normal (applies MEDGEN (St aminotransferase to non-numeric [place] [Enzymatic results) Medical, activity/volume] in PC) Serum or Plasma Alanine 53 IU/L Above high MEDGEN (St aminotransferase normal [place] [Enzymatic Medical, activity/volume] in ) Serum or Plasma ID Date Data Source [id number] 01/24/2020 12:00:00 AM EDT [facility] ([facility], ) Name Value Range Interpretation Description Data Sup porting Code Source(s) Document(s ) Leukocytes 6.8 Normal (applies MEDGEN (St [#/volume] in x10E3/uL to non-numeric [place] Blood by results) Medical, PC) Automated count Erythrocytes 4.39 Normal (applies MEDGEN (St [#/volume] in x10E6/uL to non-numeric [place] Blood by results) Medical, ) Automated count Hematocrit 38.3 % Normal (applies MEDGEN (St [Volume to non-numeric [place] Fraction] of results) Medical, PC) Blood by Automated count Hemoglobin 13.0 Normal (applies MEDGEN (St [Mass/volume] in g/dL to non-numeric [place] Blood results) Medical, PC) MCV 87 fL Normal (applies [facility]GEN (St to non-numeric [place] results) Medical, PC) MCH 29.6 pg Normal (applies [facility]GEN (St to non-numeric [place] results) Medical, PC) MCHC 33.9 Normal (applies [facility]GEN (St g/dL to non-numeric [place] results) Medical, PC) RDW 12.8 % Normal (applies [facility] (St to non-numeric [place] results) Medical, PC) Platelets 302 Normal (applies MEDGEN (St [#/area] in x10E3/uL to non-numeric [place] Blood by results) Medical, ) Microscopy high power field Neutrophils [#] 57 % Normal (applies MEDGEN ( St in Body fluid by to non-numeric [place] Manual count results) Medical, ) Lymphs 33 % Normal (applies MEDGEN (St to non-numeric [place] results) Medical, ) Monocytes 9 % Normal (applies MEDGEN (St [#/volume] in to non-numeric [place] Cord blood results) Medical, ) Eos 1 % Normal (applies MEDGEN (St to non-numeric [place] results) Medical, ) Basos 0 % Normal (applies [facility]GEN (St to non-numeric [place] results) Medical, ) Neutrophils 3.8 Normal (applies MEDGEN (St (Absolute) x10E3/uL to non-numeric [place] results) Medical, ) Lymphs 2.3 Normal (applies MEDGEN (St (Absolute) x10E3/uL to non-numeric [place] results) Medical, ) Eos (Absolute) 0.1 Normal (applies MEDGEN (S t x10E3/uL to non-numeric [place] results) Medical, ) Monocytes(Absolu 0.6 Normal (applies MEDGEN (St te) x10E3/uL to non-numeric [place] results) Medical, ) Baso (Absolute) 0.0 Normal (applies MEDGEN ( St x10E3/uL to non-numeric [place] results) Medical, ) Immature Grans 0.0 Normal (applies MEDGEN (S t (Abs) x10E3/uL to non-numeric [place] results) Medical, ) Immature 0 % Normal (applies MEDGEN (St Granulocytes to non-numeric [place] results) Medical, ) ID Date Data Source [id number] 01/24/2020 12:00:00 AM EDT [facility] ([facility], ) Name Value Range Interpretation Code Description Data Clau rce(s) Supporting Document(s ) SARS-CoV- Positive Abnormal (applies MEDGEN (St 2 to non-numeric [place] Antibody, results) Medical, ) IgG ID Date Data Source [id number] 01/24/2020 12:00:00 AM EDT [facility] ([facility], ) Name Value Range Interpretation Code Description Data Clau rce(s) Supporting Document(s ) SARS-CoV- Negative Normal (applies to MEDGEN (St 2 non-numeric [place] Antibody, results) [facility], ) IgM ID Date Data Source [id number] 01/24/2020 12:00:00 AM EDT MED[facility] ([facility]) Name Value Range Interpretation Description Data Sup porting Code Source(s) Document(s ) Bilirubin.c 0.08 mg/dL Normal (applies to MEDGEN ( St onjugated non-numeric [place] [Mass/volum results) [facility], ) e] in Serum or Plasma ID Date Data Source [id number] 01/24/2020 12:00:00 AM EDT MEDGEN ([facility]) Name Value Range Interpretation Description Data Sup porting Code Source(s) Document(s ) Cholesterol 218 Above high normal MEDGEN (St [Mass/volume] in mg/dL [facility] Serum or Plasma [facility], ) Triglyceride 283 Above high normal MEDGEN (S t [Mass/volume] in mg/dL [facility] Serum or Plasma [facility]) HDL Cholesterol 29 mg/dL Below low normal MED[facility] ([facility], ) VLDL Cholesterol 57 mg/dL Above high normal MEDGE N ([facility]) LDL Cholesterol 132 Above high normal MEDGEN (St Calc mg/dL [facility]) ID Date Data Source [id number] 01/24/2020 12:00:00 AM EDT MEDGEN ([facility], ) Name Value Range Interpretation Description Data Sup porting Code Source(s) Document(s ) Specific gravity 1.018 Normal (applies MEDGEN (St of Pericardial to non-numeric [place] fluid by results) Medical, Refractometry ) pH of Lower 6.5 Normal (applies MEDGEN (St respiratory to non-numeric [place] specimen results) [facility], ) Urine-Color Yellow Normal (applies MEDGEN (St to non-numeric [place] results) Medical, ) WBC Esterase Negative Normal (applies MEDGEN (St to non-numeric [place] results) [facility], ) Appearance of Clear Normal (applies MEDGEN (St Abdomen to non-numeric [place] results) Medical, ) Protein Negative Normal (applies [facility]GEN (St [Mass/volume] in to non-numeric [place] Lower results) Medical, respiratory PC) specimen Glucose Negative Normal (applies [facility]GEN (St [Mass/volume] in to non-numeric [place] Urine collected results) Medical, for unspecified PC) duration Ketones Negative Normal (applies [facility]GEN (St [Presence] in to non-numeric [place] Blood by Tablet results) Medical, PC) Occult Blood Negative Normal (applies [facility]GEN (St to non-numeric [place] results) Medical, PC) Bilirubin Negative Normal (applies [facility]GEN (St [Presence] in to non-numeric [place] Peritoneal fluid results) Medical, PC) Urobilinogen,Stephanie 1.0 mg/dL Normal (applies [facility]GEN (St i-Qn to non-numeric [place] results) Medical, PC) Nitrite, Urine Negative Normal (applies [facility]GEN (S t to non-numeric [place] results) Medical, PC) Microscopic Normal (applies [facility]GEN (St Examination to non-numeric [place] results) Medical, PC) ID Date Data Source [id number] 01/24/2020 12:00:00 AM EDT [facility] ([facility]) Name Value Range Interpretation Description Data Sup porting Code Source(s) Document(s ) Glucose 108 Above high MEDGEN (St [Mass/volume] in mg/dL normal [place] Urine collected for Medical, unspecified PC) duration Urea nitrogen 16 mg/dL Normal (applies [facility]GEN (St [Mass/volume] in to non-numeric [place] Serum or Plasma results) Medical, PC) Creatinine 1.03 Normal (applies MEDGEN (St [Interpretation] in mg/dL to non-numeric [place] [facility] Urine results) Medical, PC) eGFR If Africn Am 102 Normal (applies MEDGEN (St mL/min/1 to non-numeric [place] .73 results) Medical, PC) eGFR If NonAfricn 88 Normal (applies MEDGEN (St Am mL/min/1 to non-numeric [place] .73 results) Medical, PC) Sodium 142 Normal (applies [facility]GEN (St [Moles/volume] in mmol/L to non-numeric [place] Serum or Plasma results) Medical, PC) BUN/Creatinine 16 Normal (applies MEDGEN (S t Ratio to non-numeric [place] results) Medical, PC) Potassium 4.2 Normal (applies [facility]GEN (St [Mass/volume] in mmol/L to non-numeric [place] Blood results) Medical, ) Carbon dioxide, 21 Normal (applies MEDGEN ( St total mmol/L to non-numeric [place] [Moles/volume] in results) Medical, Serum or Plasma PC) Chloride 107 Above high MEDGEN (St [Moles/volume] in mmol/L normal [place] Serum or Plasma Medical, ) Calcium 9.0 Normal (applies [facility]GEN (St [Moles/volume] in mg/dL to non-numeric [place] Urine collected for results) Medical, unspecified PC) duration Protein 6.9 g/dL Normal (applies [facility]GEN (St [Mass/volume] in to non-numeric [place] Serum or Plasma results) Medical, ) Microalbumin 4.5 g/dL Normal (applies [facility]GEN (St [Mass/time] in to non-numeric [place] Urine collected for results) Medical, unspecified PC) duration Globulin, Total 2.4 g/dL Normal (applies [facility]GEN ( St to non-numeric [place] results) Medical, ) A/G Ratio 1.9 Normal (applies MEDGEN (St to non-numeric [place] results) Medical, ) Bilirubin.total <0.2 Normal (applies MEDGEN ( St [Mass/volume] in to non-numeric [place] Serum or Plasma results) Medical, ) Alkaline 127 IU/L Above high MEDGEN (St phosphatase normal [place] [Enzymatic Medical, activity/volume] in PC) Serum, Plasma or Blood Aspartate 28 IU/L Normal (applies MEDGEN (St aminotransferase to non-numeric [place] [Enzymatic results) Medical, activity/volume] in PC) Serum or Plasma Alanine 53 IU/L Above high MEDGEN (St aminotransferase normal [place] [Enzymatic Medical, activity/volume] in PC) Serum or Plasma ID Date Data Source [id number] 01/24/2020 12:00:00 AM EDT [facility] ([facility], ) Name Value Range Interpretation Description Data Sup porting Code Source(s) Document(s ) Leukocytes 6.8 Normal (applies MEDGEN (St [#/volume] in x10E3/uL to non-numeric [place] Blood by results) Medical, ) Automated count Erythrocytes 4.39 Normal (applies MEDGEN (St [#/volume] in x10E6/uL to non-numeric [place] Blood by results) [facility], ) Automated count Hematocrit 38.3 % Normal (applies MEDGEN (St [Volume to non-numeric [place] Fraction] of results) [facility], ) Blood by Automated count Hemoglobin 13.0 Normal (applies MEDGEN (St [Mass/volume] in g/dL to non-numeric [place] Blood results) [facility], ) MCV 87 fL Normal (applies MEDGEN (St to non-numeric [place] results) [facility], ) MCH 29.6 pg Normal (applies MEDGEN (St to non-numeric [place] results) [facility], ) MCHC 33.9 Normal (applies MEDGEN (St g/dL to non-numeric [place] results) [facility], ) RDW 12.8 % Normal (applies MEDGEN (St to non-numeric [place] results) [facility], ) Platelets 302 Normal (applies MEDGEN (St [#/area] in x10E3/uL to non-numeric [place] Blood by results) [facility], ) Microscopy high power field Neutrophils [#] 57 % Normal (applies MEDGEN ( St in Body fluid by to non-numeric [place] Manual count results) [facility], ) Lymphs 33 % Normal (applies MEDGEN (St to non-numeric [place] results) [facility], ) Monocytes 9 % Normal (applies MEDGEN (St [#/volume] in to non-numeric [place] Cord blood results) [facility], ) Eos 1 % Normal (applies MEDGEN (St to non-numeric [place] results) [facility], ) Basos 0 % Normal (applies MEDGEN (St to non-numeric [place] results) [facility], ) Neutrophils 3.8 Normal (applies MEDGEN (St (Absolute) x10E3/uL to non-numeric [place] results) [facility], ) Lymphs 2.3 Normal (applies MEDGEN (St (Absolute) x10E3/uL to non-numeric [place] results) [facility], ) Monocytes(Absolu 0.6 Normal (applies MEDGEN (St te) x10E3/uL to non-numeric [place] results) [facility], ) Eos (Absolute) 0.1 Normal (applies MEDGEN (S t x10E3/uL to non-numeric [place] results) [facility], ) Baso (Absolute) 0.0 Normal (applies MEDGEN ( St x10E3/uL to non-numeric [place] results) [facility]) Immature 0 % Normal (applies MEDGEN (St Granulocytes to non-numeric [place] results) [facility]) Immature Grans 0.0 Normal (applies MEDGEN (S t (Abs) x10E3/uL to non-numeric [place] results) [facility]) ID Date Data Source [id number] 01/24/2020 12:00:00 AM EDT MEDGEN ([facility], ) Name Value Range Interpretation Code Description Data Clau rce(s) Supporting Document(s ) SARS-CoV- Positive Abnormal (applies MEDGEN (St 2 to non-numeric [place] Antibody, results) [facility]) IgG ID Date Data Source [id number] 01/24/2020 12:00:00 AM EDT MEDGEN ([facility], ) Name Value Range Interpretation Code Description Data Clau rce(s) Supporting Document(s ) SARS-CoV- Negative Normal (applies to MEDGEN (St 2 non-numeric [place] Antibody, results) [facility]) IgM ID Date Data Source [id number] 01/24/2020 12:00:00 AM EDT MEDGEN ([facility], ) Name Value Range Interpretation Description Data Sup porting Code Source(s) Document(s ) Bilirubin.c 0.08 mg/dL Normal (applies to MEDGEN ( St onjugated non-numeric [place] [Mass/volum results) [facility]) e] in Serum or Plasma ID Date Data Source [id number] 01/24/2020 12:00:00 AM EDT MEDGEN ([facility], ) Name Value Range Interpretation Description Data Sup porting Code Source(s) Document(s ) Cholesterol 218 Above high normal MEDGEN (St [Mass/volume] in mg/dL [facility] Serum or Plasma [facility]) HDL Cholesterol 29 mg/dL Below low normal [facility] ([facility]) VLDL Cholesterol 57 mg/dL Above high normal MEDGE N ( [facility]) Triglyceride 283 Above high normal MEDGEN (S t [Mass/volume] in mg/dL [facility]'s Serum or Plasma [facility]) LDL Cholesterol 132 Above high normal [facility] (St Calc mg/dL [facility], ) ID Date Data Source [id number] 01/24/2020 12:00:00 AM EDT [facility] ([facility] ) Name Value Range Interpretation Description Data Sup porting Code Source(s) Document(s ) Specific gravity 1.018 Normal (applies MEDGEN (St of Pericardial to non-numeric [place] fluid by results) Medical, Refractometry PC) Urine-Color Yellow Normal (applies MEDGEN (St to non-numeric [place] results) Medical, PC) pH of Lower 6.5 Normal (applies [facility]GEN (St respiratory to non-numeric [place] specimen results) Medical, PC) Protein Negative Normal (applies [facility]GEN (St [Mass/volume] in to non-numeric [place] Lower results) Medical, respiratory PC) specimen WBC Esterase Negative Normal (applies MEDGEN (St to non-numeric [place] results) Medical, PC) Appearance of Clear Normal (applies MEDGEN (St Abdomen to non-numeric [place] results) Medical, PC) Glucose Negative Normal (applies [facility]GEN (St [Mass/volume] in to non-numeric [place] Urine collected results) Medical, for unspecified PC) duration Ketones Negative Normal (applies MEDGEN (St [Presence] in to non-numeric [place] Blood by Tablet results) Medical, PC) Urobilinogen,Stephanie 1.0 mg/dL Normal (applies [facility]GEN (St i-Qn to non-numeric [place] results) Medical, PC) Bilirubin Negative Normal (applies [facility] (St [Presence] in to non-numeric [place] Peritoneal fluid results) Medical, PC) Occult Blood Negative Normal (applies MEDGEN (St to non-numeric [place] results) Medical, PC) Nitrite, Urine Negative Normal (applies [facility]GEN (S t to non-numeric [place] results) Medical, PC) Microscopic Normal (applies MEDGEN (St Examination to non-numeric [place] results) Medical, ) ID Date Data Source [id number] 01/24/2020 12:00:00 AM EDT [facility] ([facility] ) Name Value Range Interpretation Description Data Sup porting Code Source(s) Document(s ) Creatinine 1.03 Normal (applies MEDGEN (St [Interpretation] in mg/dL to non-numeric [place] [facility] Urine results) Medical, PC) Urea nitrogen 16 mg/dL Normal (applies [facility]GEN (St [Mass/volume] in to non-numeric [place] Serum or Plasma results) Medical, PC) Glucose 108 Above high MEDGEN (St [Mass/volume] in mg/dL normal [place] Urine collected for Medical, unspecified PC) duration eGFR If NonAfricn 88 Normal (applies MEDGEN (St Am mL/min/1 to non-numeric [place] .73 results) Medical, PC) eGFR If Africn Am 102 Normal (applies MEDGEN (St mL/min/1 to non-numeric [place] .73 results) Medical, PC) BUN/Creatinine 16 Normal (applies MEDGEN (S t Ratio to non-numeric [place] results) Medical, PC) Potassium 4.2 Normal (applies [facility]GEN (St [Mass/volume] in mmol/L to non-numeric [place] Blood results) Medical, PC) Sodium 142 Normal (applies MEDGEN (St [Moles/volume] in mmol/L to non-numeric [place] Serum or Plasma results) Medical, PC) Calcium 9.0 Normal (applies MEDGEN (St [Moles/volume] in mg/dL to non-numeric [place] Urine collected for results) Medical, unspecified PC) duration Chloride 107 Above high MEDGEN (St [Moles/volume] in mmol/L normal [place] Serum or Plasma Medical, PC) Carbon dioxide, 21 Normal (applies MEDGEN ( St total mmol/L to non-numeric [place] [Moles/volume] in results) Medical, Serum or Plasma PC) Protein 6.9 g/dL Normal (applies MEDGEN (St [Mass/volume] in to non-numeric [place] Serum or Plasma results) Medical, PC) Microalbumin 4.5 g/dL Normal (applies MEDGEN (St [Mass/time] in to non-numeric [place] Urine collected for results) Medical, unspecified PC) duration A/G Ratio 1.9 Normal (applies MEDGEN (St to non-numeric [place] results) Medical, PC) Globulin, Total 2.4 g/dL Normal (applies MEDGEN ( St to non-numeric [place] results) Medical, PC) Alkaline 127 IU/L Above high MEDGEN (St phosphatase normal [place] [Enzymatic Medical, activity/volume] in PC) Serum, Plasma or Blood Bilirubin.total <0.2 Normal (applies MEDGEN ( St [Mass/volume] in to non-numeric [place] Serum or Plasma results) Medical, ) Aspartate 28 IU/L Normal (applies MEDGEN (St aminotransferase to non-numeric [place] [Enzymatic results) Medical, activity/volume] in ) Serum or Plasma Alanine 53 IU/L Above high MEDGEN (St aminotransferase normal [place] [Enzymatic Medical, activity/volume] in ) Serum or Plasma ID Date Data Source [id number] 01/24/2020 12:00:00 AM EDT [facility] ([facility], ) Name Value Range Interpretation Description Data Sup porting Code Source(s) Document(s ) Leukocytes 6.8 Normal (applies MEDGEN (St [#/volume] in x10E3/uL to non-numeric [place] Blood by results) [facility], ) Automated count Hemoglobin 13.0 Normal (applies MEDGEN (St [Mass/volume] in g/dL to non-numeric [place] Blood results) [facility], ) Hematocrit 38.3 % Normal (applies MEDGEN (St [Volume to non-numeric [place] Fraction] of results) [facility], ) Blood by Automated count Erythrocytes 4.39 Normal (applies MEDGEN (St [#/volume] in x10E6/uL to non-numeric [place] Blood by results) [facility], ) Automated count MCH 29.6 pg Normal (applies MEDGEN (St to non-numeric [place] results) [facility], ) MCV 87 fL Normal (applies MEDGEN (St to non-numeric [place] results) [facility], ) MCHC 33.9 Normal (applies MEDGEN (St g/dL to non-numeric [place] results) [facility], ) RDW 12.8 % Normal (applies MEDGEN (St to non-numeric [place] results) Medical, ) Platelets 302 Normal (applies MEDGEN (St [#/area] in x10E3/uL to non-numeric [place] Blood by results) [facility], ) Microscopy high power field Monocytes 9 % Normal (applies MEDGEN (St [#/volume] in to non-numeric [place] Cord blood results) [facility], ) Neutrophils [#] 57 % Normal (applies MEDGEN ( St in Body fluid by to non-numeric [place] Manual count results) [facility] ) Lymphs 33 % Normal (applies MEDGEN (St to non-numeric [place] results) Medical, ) Eos 1 % Normal (applies MEDGEN (St to non-numeric [place] results) Medical, ) Basos 0 % Normal (applies MEDGEN (St to non-numeric [place] results) Medical, ) Monocytes(Absolu 0.6 Normal (applies MEDGEN (St te) x10E3/uL to non-numeric [place] results) Medical, ) Lymphs 2.3 Normal (applies MEDGEN (St (Absolute) x10E3/uL to non-numeric [place] results) Medical, ) Neutrophils 3.8 Normal (applies MEDGEN (St (Absolute) x10E3/uL to non-numeric [place] results) Medical, ) Baso (Absolute) 0.0 Normal (applies MEDGEN ( St x10E3/uL to non-numeric [place] results) Medical, ) Eos (Absolute) 0.1 Normal (applies MEDGEN (S t x10E3/uL to non-numeric [place] results) Medical, ) Immature 0 % Normal (applies MEDGEN (St Granulocytes to non-numeric [place] results) Medical, ) Immature Grans 0.0 Normal (applies [facility] (S t (Abs) x10E3/uL to non-numeric [facility] results) Medical, ) ID Date Data Source [id number] 01/24/2020 12:00:00 AM EDT [facility] ([facility], ) Name Value Range Interpretation Code Description Data Clau rce(s) Supporting Document(s ) SARS-CoV- Positive Abnormal (applies [facility] (St 2 to non-numeric [facility] Antibody, results) Medical, ) IgG ID Date Data Source [id number] 01/24/2020 12:00:00 AM EDT [facility] ([facility], ) Name Value Range Interpretation Code Description Data Clau rce(s) Supporting Document(s ) SARS-CoV- Negative Normal (applies to [facility] (St 2 non-numeric [facility] Antibody, results) Medical, ) IgM ID Date Data Source [id number] 01/24/2020 12:00:00 AM EDT [facility] ([facility], ) Name Value Range Interpretation Description Data Sup porting Code Source(s) Document(s ) Bilirubin.c 0.08 mg/dL Normal (applies to [facility] ( St onjugated non-numeric [facility] [Mass/volum results) Medical, ) e] in Serum or Plasma ID Date Data Source [id number] 01/24/2020 12:00:00 AM EDT [facility] ([facility], ) Name Value Range Interpretation Description Data Sup porting Code Source(s) Document(s ) Cholesterol 218 Above high normal [facility] (St [Mass/volume] in mg/dL [facility] Serum or Plasma [facility], ) Triglyceride 283 Above high normal [facility] (S t [Mass/volume] in mg/dL [facility] Serum or Plasma [facility], ) HDL Cholesterol 29 mg/dL Below low normal [facility] ([facility]) LDL Cholesterol 132 Above high normal MED[facility] (St Calc mg/dL [facility]) VLDL Cholesterol 57 mg/dL Above high normal MEDGE N ([facility]) ID Date Data Source [id number] 01/24/2020 12:00:00 AM EDT [facility] ([facility], ) Name Value Range Interpretation Description Data Sup porting Code Source(s) Document(s ) Specific gravity 1.018 Normal (applies [facility] (St of Pericardial to non-numeric [facility] fluid by results) Medical, Refractometry PC) Urine-Color Yellow Normal (applies [facility] (St to non-numeric [facility] results) Medical, ) pH of Lower 6.5 Normal (applies [facility] (St respiratory to non-numeric [facility] specimen results) Medical, ) WBC Esterase Negative Normal (applies [facility] (St to non-numeric [facility] results) Medical, PC) Appearance of Clear Normal (applies [facility] (St Abdomen to non-numeric [facility] results) Medical, PC) Protein Negative Normal (applies [facility] (St [Mass/volume] in to non-numeric [facility] Lower results) Medical, respiratory PC) specimen Glucose Negative Normal (applies [facility] (St [Mass/volume] in to non-numeric [facility] Urine collected results) Medical, for unspecified PC) duration Ketones Negative Normal (applies [facility] (St [Presence] in to non-numeric [facility] Blood by Tablet results) Medical, PC) Occult Blood Negative Normal (applies [facility] (St to non-numeric [facility] results) Medical, ) Bilirubin Negative Normal (applies [facility] (St [Presence] in to non-numeric [facility] Peritoneal fluid results) Medical, ) Nitrite, Urine Negative Normal (applies [facility] (S t to non-numeric [facility] results) Medical, ) Urobilinogen,Stephanie 1.0 mg/dL Normal (applies [facility] (St i-Qn to non-numeric [facility] results) Medical, ) Microscopic Normal (applies [facility] (St Examination to non-numeric [facility] results) Medical, ) ID Date Data Source [id number] 01/24/2020 12:00:00 AM EDT [facility] ([facility], ) Name Value Range Interpretation Description Data Sup porting Code Source(s) Document(s ) Glucose 108 Above high [facility] (St [Mass/volume] in mg/dL normal [facility] Urine collected for Medical, unspecified PC) duration Urea nitrogen 16 mg/dL Normal (applies [facility] (St [Mass/volume] in to non-numeric [facility] Serum or Plasma results) Medical, ) Creatinine 1.03 Normal (applies [facility] (St [Interpretation] in mg/dL to non-numeric [facility] Urine results) Medical, ) eGFR If Africn Am 102 Normal (applies [facility] (St mL/min/1 to non-numeric [facility] .73 results) Medical, ) BUN/Creatinine 16 Normal (applies [facility] (S t Ratio to non-numeric [facility] results) Medical, ) eGFR If NonAfricn 88 Normal (applies [facility] (St Am mL/min/1 to non-numeric [facility] .73 results) Medical, ) Sodium 142 Normal (applies [facility] (St [Moles/volume] in mmol/L to non-numeric [facility] Serum or Plasma results) Medical, ) Potassium 4.2 Normal (applies [facility] (St [Mass/volume] in mmol/L to non-numeric [facility] Blood results) Medical, ) Chloride 107 Above high [facility] (St [Moles/volume] in mmol/L normal [facility] Serum or Plasma Medical, ) Carbon dioxide, 21 Normal (applies [facility] ( St total mmol/L to non-numeric [facility] [Moles/volume] in results) Medical, Serum or Plasma PC) Calcium 9.0 Normal (applies [facility] (St [Moles/volume] in mg/dL to non-numeric [facility] Urine collected for results) Medical, unspecified PC) duration Globulin, Total 2.4 g/dL Normal (applies [facility] ( St to non-numeric [facility] results) Medical, ) Protein 6.9 g/dL Normal (applies [facility] (St [Mass/volume] in to non-numeric [facility] Serum or Plasma results) Medical, ) Microalbumin 4.5 g/dL Normal (applies [facility] (St [Mass/time] in to non-numeric [facility] Urine collected for results) Medical, unspecified PC) duration Bilirubin.total <0.2 Normal (applies [facility] ( St [Mass/volume] in to non-numeric [facility] Serum or Plasma results) Medical, ) A/G Ratio 1.9 Normal (applies [facility] (St to non-numeric [facility] results) Medical, ) Aspartate 28 IU/L Normal (applies [facility] (St aminotransferase to non-numeric [facility] [Enzymatic results) Medical, activity/volume] in PC) Serum or Plasma Alkaline 127 IU/L Above high [facility] (St phosphatase normal [facility] [Enzymatic Medical, activity/volume] in PC) Serum, Plasma or Blood Alanine 53 IU/L Above high [facility] (St aminotransferase normal [facility] [Enzymatic Medical, activity/volume] in PC) Serum or Plasma ID Date Data Source [id number] 01/24/2020 12:00:00 AM EDT [facility] ([facility], ) Name Value Range Interpretation Description Data Sup porting Code Source(s) Document(s ) Leukocytes 6.8 Normal (applies [facility] (St [#/volume] in x10E3/uL to non-numeric [facility] Blood by results) Medical, ) Automated count Hemoglobin 13.0 Normal (applies [facility] (St [Mass/volume] in g/dL to non-numeric [facility] Blood results) Medical, ) Erythrocytes 4.39 Normal (applies [facility] (St [#/volume] in x10E6/uL to non-numeric [facility] Blood by results) Medical, ) Automated count Hematocrit 38.3 % Normal (applies [facility] (St [Volume to non-numeric [facility] Fraction] of results) Medical, ) Blood by Automated count MCV 87 fL Normal (applies [facility] (St to non-numeric [facility] results) [facility], ) MCH 29.6 pg Normal (applies [facility] (St to non-numeric [facility] results) [facility], ) MCHC 33.9 Normal (applies [facility] (St g/dL to non-numeric [facility] results) [facility], ) Platelets 302 Normal (applies [facility] (St [#/area] in x10E3/uL to non-numeric [facility] Blood by results) [facility], ) Microscopy high power field RDW 12.8 % Normal (applies [facility] (St to non-numeric [facility] results) [facility], ) Neutrophils [#] 57 % Normal (applies [facility] ( St in Body fluid by to non-numeric [facility] Manual count results) [facility], ) Lymphs 33 % Normal (applies [facility] (St to non-numeric [facility] results) [facility], ) Monocytes 9 % Normal (applies [facility] (St [#/volume] in to non-numeric [facility] Cord blood results) [facility], ) Basos 0 % Normal (applies [facility] (St to non-numeric [facility] results) [facility], ) Eos 1 % Normal (applies [facility] (St to non-numeric [facility] results) [facility], ) Neutrophils 3.8 Normal (applies [facility] (St (Absolute) x10E3/uL to non-numeric [facility] results) [facility], ) Lymphs 2.3 Normal (applies [facility] (St (Absolute) x10E3/uL to non-numeric [facility] results) [facility], ) Eos (Absolute) 0.1 Normal (applies [facility] (S t x10E3/uL to non-numeric [facility] results) [facility], ) Monocytes(Absolu 0.6 Normal (applies [facility] (St te) x10E3/uL to non-numeric [facility] results) [facility], ) Baso (Absolute) 0.0 Normal (applies [facility] ( St x10E3/uL to non-numeric [facility] results) [facility], ) Immature Grans 0.0 Normal (applies [facility] (S t (Abs) x10E3/uL to non-numeric [facility] results) [facility], ) Immature 0 % Normal (applies [facility] (St Granulocytes to non-numeric [facility] results) Medical, PC) ID Date Data Source [id number] 10/01/2019 12:00:00 AM EDT [facility] Name Value Range Interpretation Code Description Data Clau rce(s) Supporting Document(s ) 2019-nCoV [facility] RNA XXX SATINDER+probe- Imp This lab was ordered by [facility]-Erendira RUIZ and reported by [employer] Procedure Social History Code Duration Value Status Description Data Source(s ) Smoking 03/13/2020 uses cannabis completed uses cannabis [facility] ( St 12:00:00 AM EDT social drinking social drinking [facility], [facility]) Smoking 03/13/2020 Unknown if ever completed Unknown if ever MEDG EN (St 12:00:00 AM EDT smoked smoked [facility], [facility]) Smoking 03/05/2020 uses cannabis completed uses cannabis [facility] ( St 12:00:00 AM EDT social drinking social drinking [facility], [facility]) Smoking 03/05/2020 Unknown if ever completed Unknown if ever MEDG EN (St 12:00:00 AM EDT smoked smoked [facility], [facility]) Smoking 02/29/2020 uses cannabis completed uses cannabis [facility] ( St 12:00:00 AM EDT social drinking social drinking [facility], [facility]) Smoking 02/29/2020 Unknown if ever completed Unknown if ever MEDG EN (St 12:00:00 AM EDT smoked smoked [facility]) Smoking 02/29/2020 uses cannabis completed uses cannabis [facility] ( St 12:00:00 AM EDT social drinking social drinking [facility], [facility]) Smoking 02/29/2020 Unknown if ever completed Unknown if ever MEDG EN (St 12:00:00 AM EDT smoked smoked [facility]) Smoking 01/24/2020 uses cannabis completed uses cannabis [facility] ( St 12:00:00 AM EDT social drinking social drinking [facility]'s [facility], PC) Smoking 01/24/2020 Unknown if ever completed Unknown if ever MEDG EN (St 12:00:00 AM EDT smoked smoked [facility], [facility]) Vital Signs ID Date Data Source UNK Name Value Range Interpretation Code Description Data Source(s) Heart rate 88 /min 88 /min [facility] ([facility]) Respiratory rate 15 /min 15 /min [facility] ( [facility]) Inhaled oxygen 98 % 98 % [facility] ([facility]) Body mass index 36.3 kg/m2 36.3 kg/m2 MED[facility] (S t (BMI) [Ratio] [facility]) Diastolic blood 80 mm[Hg] 80 mm[Hg] MED[facility] (S t pressure [facility]) Systolic blood 140 mm[Hg] 140 mm[Hg] [facility] ([facility]) Body weight 225 lb 225 lb MED[facility] ([facility]) Body height 66 in 66 in [facility] ([facility]) Body mass index 38.2 kg/m2 38.2 kg/m2 MED[facility] (S t (BMI) [Ratio] [facility]) Diastolic blood 88 mm[Hg] 88 mm[Hg] MEDGEN (S t [facility]) Systolic blood 150 mm[Hg] 150 mm[Hg] [facility] ([facility]) Body weight 237 lb 237 lb MED[facility] ([facility]) Body height 66 in 66 in [facility] ([facility]) Heart rate 88 /min 88 /min [facility] ([facility]) Respiratory rate 15 /min 15 /min MED[facility] ( [facility]) Inhaled oxygen 98 % 98 % [facility] ([facility]) Body mass index 36.3 kg/m2 36.3 kg/m2 MEDGEN (S t (BMI) [Ratio] [facility]) Diastolic blood 80 mm[Hg] 80 mm[Hg] MEDGEN (S t pressure [facility]) Systolic blood 140 mm[Hg] 140 mm[Hg] [facility] ([facility]) Body weight 225 lb 225 lb MED[facility] ([facility]) Body height 66 in 66 in [facility] ([facility]) Body mass index 38.2 kg/m2 38.2 kg/m2 MEDGEN (S t (BMI) [Ratio] [facility]) Diastolic blood 88 mm[Hg] 88 mm[Hg] MEDGEN (S t pressure [facility]) Systolic blood 150 mm[Hg] 150 mm[Hg] [facility] ([facility]) Body weight 237 lb 237 lb MED[facility] ([facility]) Body height 66 in 66 in [facility] ([facility]) Heart rate 88 /min 88 /min [facility] ([facility]) Respiratory rate 15 /min 15 /min MED[facility] ( [facility]) Inhaled oxygen 98 % 98 % [facility] ([facility]) Body mass index 36.3 kg/m2 36.3 kg/m2 MEDGEN (S t (BMI) [Ratio] [facility], ) Diastolic blood 80 mm[Hg] 80 mm[Hg] MED[facility] (S t [facility]) Systolic blood 140 mm[Hg] 140 mm[Hg] [facility] ([facility]) Body weight 225 lb 225 lb MED[facility] ([facility]) Body height 66 in 66 in [facility] ([facility]) Heart rate 88 /min 88 /min [facility] ([facility]) Respiratory rate 15 /min 15 /min MED[facility] ( [facility]) Inhaled oxygen 98 % 98 % [facility] ([facility]) Body mass index 36.3 kg/m2 36.3 kg/m2 MEDGEN (S t (BMI) [Ratio] [facility], ) Diastolic blood 80 mm[Hg] 80 mm[Hg] MEDGEN (S t pressure [facility]) Systolic blood 140 mm[Hg] 140 mm[Hg] [facility] ([facility]) Body weight 225 lb 225 lb [facility] ([facility]) Body height 66 in 66 in [facility] ([facility]) Body mass index 38.2 kg/m2 38.2 kg/m2 MEDGEN (S t (BMI) [Ratio] [facility], ) Diastolic blood 88 mm[Hg] 88 mm[Hg] MEDGEN (S t pressure [facility]) Systolic blood 150 mm[Hg] 150 mm[Hg] [facility] ([facility]) Body weight 237 lb 237 lb [facility] ([facility]) Body height 66 in 66 in [facility] Body mass index 36.3 kg/m2 36.3 kg/m2 MEDGEN (S t (BMI) [Ratio] [facility], ) Diastolic blood 92 mm[Hg] 92 mm[Hg] MEDGEN (S t pressure [facility]) Systolic blood 150 mm[Hg] 150 mm[Hg] [facility] ([facility]) Body weight 225 lb 225 lb [facility] ([facility]) Body height 66 in 66 in [facility] ([facility]) Body mass index 36.3 kg/m2 36.3 kg/m2 MEDGEN (S t (BMI) [Ratio] [facility]) Diastolic blood 92 mm[Hg] 92 mm[Hg] MEDGEN (S t pressure [facility]) Systolic blood 150 mm[Hg] 150 mm[Hg] MED[facility] ([facility]) Body weight 225 lb 225 lb [facility] ([facility]) Body height 66 in 66 in [facility] ([facility]) Body mass index 36.3 kg/m2 36.3 kg/m2 MEDGEN (S t (BMI) [Ratio] [facility]) Diastolic blood 92 mm[Hg] 92 mm[Hg] MEDGEN (S [facility]) Systolic blood 150 mm[Hg] 150 mm[Hg] MED[facility] ([facility]) Body weight 225 lb 225 lb [facility] ([facility]) Body height 66 in 66 in [facility] ([facility]) Body mass index 36.3 kg/m2 36.3 kg/m2 MED[facility] (S t (BMI) [Ratio] [facility]) Diastolic blood 92 mm[Hg] 92 mm[Hg] MEDGEN (S t pressure [facility]) Systolic blood 150 mm[Hg] 150 mm[Hg] [facility] ([facility]) Body weight 225 lb 225 lb [facility] ([facility]) Body height 66 in [facility] Body mass index 36.3 kg/m2 36.3 kg/m2 MED[facility] (S t (BMI) [Ratio] [facility], ) Diastolic blood 92 mm[Hg] 92 mm[Hg] [facility] (S t pressure [facility]) Systolic blood 150 mm[Hg] 150 mm[Hg] [facility] (St pressure [facility]) Body weight 225 lb 225 lb [facility] ([facility]) Body height 66 in 66 in [facility] ([facility]) Patient Treatment Plan of Care Planned Activity Planned Date Details Description Data Source (s) 0.9% NaCl IV 01/17/2020 11:25:51 [facility] Tylenol Infusion (AD 01/17/2020 11:25:47 [facility] Unasyn (Ampicillin/S 01/17/2020 11:16:11 [facility] Toradol 30 mg/mL (Ke 01/16/2020 07:33:51 [facility] Acetaminophen (Tylen 10/17/2019 05:24:22 [facility] Lidocaine Viscous So 10/17/2019 05:20:32 [facility]
--- NOTE | 2020-03-20 16:30 | TELE ---
HPI Do you have fever,cough or shortness of breath?: Yes - General Reason For Visit: VIRTUAL VISIT History Source: Patient Past History - Medical History Allergies/Adverse Reactions: Allergies Allergy/AdvReac Type Severity Reaction Status Date / Time No Known Allergies Allergy Verified 08/01/15 10:27 Home Medications: Ambulatory Orders No Home Medications 0 dose .ROUTE UTDICT 10/16/13 Oseltamivir Phosphate [Tamiflu] 75 mg PO BID #10 capsule 08/01/15 Amoxicillin/Potassium Clav [Augmentin 875-125 Tablet] 1 each PO BID 5 Days #10 tablet 01/16/20 Naproxen 500 mg PO BID PRN 5 Days #10 tablet 01/16/20 Anemia: No Asthma: Yes Cancer: No Cardiac Disorders: No CVA: No COPD: No CHF: No Dementia: No Diabetes: No GI Disorders: Yes (gastritis) Disorders: No HTN: Yes Hypercholesterolemia: Yes Liver Disease: No Seizures: No Thyroid Disease: No - Surgical History Abdominal Surgery: No Appendectomy: No Cardiac Surgery: No Cholecystectomy: No Lung Surgery: No Neurologic Surgery: No Orthopedic Surgery: No - Psycho-Social/Smoking History Smoking Status: Yes Smoking History: Never smoked Have you smoked in the past 12 months: Yes Number of Cigarettes Smoked Daily: 1 'Breaking Loose' booklet given: 04/21/13 Review of Systems - Review of Systems Constitutional: No: Fever *Physical Exam - Physical Exam Respiratory/Chest: negative: Respiratory Distress Discharge Diagnosis at time of Disposition: Encounter for laboratory testing for COVID-19 virus - Referrals Follow-up Referral(s): Yoni Loera MD [Primary Care Provider] - - Patient Instructions - Discharge Disposition: HOME Condition at time of Disposition: Stable
== END 2020-03-20 16:30 | disposition home or self-care (01) ==
LOC: JVIRT 15:55
DX: Z11.59 Encounter for screening for other viral diseases (principal)
CPT/HCPCS: C9803; Q3014-GT; U0003

== ENCOUNTER 2020-07-27 11:29 | Emergency (ER) | payer OTHER | END 2020-07-27 12:55 | disposition home or self-care (01) | LOC: JVIRT 11:29 | DX: Z20.822 Contact with and (suspected) exposure to COVID-19 (principal) | CPT/HCPCS: C9803; G2251-GT; Q3014-GT; U0003 ==

== ENCOUNTER 2020-08-15 15:03 | Emergency (ER) | payer OTHER ==
[2020-08-15 15:11] VITALS: BMI 34.9
[2020-08-15 16:10] LABS: BASO % 0.2 % (0-2.0); EOS % 1.8 % (0-4.5); HEMATOCRIT 39.6 % (35.4-49); HEMOGLOBIN 13.4 GM/dL (11.7-16.9); MCH 29.9 pg (25.7-33.7); MCHC 33.9 g/dl (32.0-35.9); MEAN CELL VOLUME 88.2 fl (80-96); MONO % 5.7 % (3.8-10.2); NEUT % 54.3 % (42.8-82.8); PLATELET COUNT 245 K/MM3 (134-434); RBC 4.49 M/mm3 (4.00-5.60); RDW 13.2 % (11.9-15.9); WHITE BLOOD COUNT 7.2 K/mm3 (4.0-10.0)
[2020-08-15 16:38] LABS: CHLORIDE 103 mmol/L (98-107); POTASSIUM 3.7 mmol/L (3.5-5.1); SODIUM 137 mmol/L (136-145)
[2020-08-15 16:43] LABS: ALBUMIN 3.8 g/dl (3.4-5.0); ANION GAP 8 MMOL/L (8-16); CALCIUM 8.5 mg/dL (8.5-10.1); CO2 26 mmol/L (21-32); INR 0.95 (0.83-1.09); PROTHROMBIN TIME (PATIENT) 11.7 SEC (9.7-13.0)
[2020-08-15 16:44] LABS: BLOOD UREA NITROGEN 14.4 mg/dL (7-18); GLUCOSE,RANDOM 165 mg/dL (74-106)
[2020-08-15 16:46] LABS: ACTIVATED PTT 31.9 SECONDS (25.2-36.5); SGPT/ALT 89 U/L (13-61); TRIGLYCERIDES 306 mg/dL (0-150)
[2020-08-15 16:47] LABS: CHOLESTEROL 267 mg/dL (50-200); CREATININE 1.2 mg/dL (0.55-1.3); SGOT/AST 41 U/L (15-37)
[2020-08-15 16:48] LABS: BILIRUBIN,TOTAL 0.2 mg/dL (0.2-1); LDL CHOLESTEROL (ONLY SJRH) 185 mg/dL (5-100); TOT PROT 7.1 g/dl (6.4-8.2)
[2020-08-15 16:49] LABS: ALK PHOS 125 U/L (45-117); HDL CHOLESTEROL 40 mg/dL (40-60)
[2020-08-15] MEDS ORDERED: predniSONE 20 MG TABLET (UD) PO ONE ×2 (16:49→17:02)
[2020-08-15] MEDS ORDERED: predniSONE 20 MG TABLET (UD) ONE (17:08)
[2020-08-15] MEDS ORDERED: predniSONE 10 MG TABLET (UD) ONE (17:09)
[2020-08-15 17:22] VITALS: BP 136/90; PULSE 67; TEMP 98.4
== END 2020-08-15 17:53 | disposition home or self-care (01) ==
LOC: JER 15:03
DX: G51.0 Bell's palsy (principal)
CPT/HCPCS: 36415; 70450-TC; 71045-TC-FY; 80053; 80061; 82550; 82553; 83721; 84484; 85025; 85610; 85730; 86618; 93005; 93010; 99284-25; C9803; U0003